=== PATIENT | male | born 1955 | race African-American/Black ===

== ENCOUNTER 2017-11-18 17:08 | Emergency (ER) | payer MEDICAID ==
[~2017-11-18] VITALS: Ht 185.4 cm; Wt 70.0 kg
[2017-11-18] MEDS ORDERED: DEXTROSE 50% WATER 50ML SYRINGE IV ONE (17:22)
[2017-11-18] MEDS ORDERED: OCTREOTIDE 1,000 MCG in SODIUM CHLORIDE 0.9% 100 ML IV ONE ×4 (18:00)
[2017-11-18 18:19] LABS: HEMATOCRIT. 36.3 % (42.0-52.0); HEMOGLOBIN. 12.2 g/dL (14.0-18.0); MEAN CORPUSCULAR VOLUME 92.3 fL (80.0-94.0); MEAN PLATELET VOLUME 9.1 fl (7.4-10.4); PLATELET 207 x1000/uL (130-400); RED BLOOD CELL COUNT 3.93 mill/uL (4.7-6.1); RED CELL DISTRIBUTION WIDTH 13.7 % (11.6-14.6)
[2017-11-18 18:29] LABS: CHLORIDE 109 mEq/L (98-107)
[2017-11-18 18:35] LABS: TROPONIN I < 0.02 ng/mL (0.00-0.04)
[2017-11-18 19:03] LABS: PLATELET ESTIMATE NORMAL
[2017-11-18] MEDS ORDERED: SODIUM CHLORIDE 0.9% 500 ML IV ONE (20:56)
[2017-11-18 21:16] LABS: CLARITY URINE CLEAR (CLEAR); COLOR URINE YELLOW (YELLOW); KETONES URINE TRACE (NEGATIVE); LEUKOCYTE ESTERASE URINE NEGATIVE (NEGATIVE); NITRITE URINE NEGATIVE (NEGATIVE); OCCULT BLOOD URINE TRACE (NEGATIVE); PROTEIN URINE NEGATIVE (NEGATIVE); SPECIFIC GRAVITY URINE 1.018 (1.005-1.030)
[2017-11-19 03:01] VITALS: BP 151/98
== END 2017-11-19 03:04 | disposition home or self-care (01) ==
LOC: ER 17:35
DX: E11.649 Type 2 diabetes mellitus with hypoglycemia without coma (principal); E78.00 Pure hypercholesterolemia, unspecified; I10 Essential (primary) hypertension
CPT/HCPCS: 36415; 71045; 80053; 81003; 82962; 83880; 84484; 85025; 85610; 93005; 96365; 96366; 99285; J2354; J7030; J7050; Z7610

== ENCOUNTER 2018-11-15 13:45 | Inpatient (IN) | payer MEDICAID, OTHER ==
[~2018-11-15] VITALS: Ht 180.3 cm; Wt 77.2 kg
[2018-11-15 05:16] VITALS: BP 118/70
[2018-11-15] MEDS ORDERED: SODIUM CHLORIDE 0.9% 1,000 ML IV ONE (14:16)
[2018-11-15 14:54] LABS: BASOPHILS % 0.3 % (0.0-2.0); HEMATOCRIT. 35.6 % (42.0-52.0); HEMOGLOBIN. 11.6 g/dL (14.0-18.0); LYMPHOCYTES % 9.7 % (20.0-50.0); MEAN CORPUSCULAR HEMOGLOBIN 31.3 pg (28.0-32.0); MEAN CORPUSCULAR VOLUME 96.3 fL (80.0-94.0); MEAN PLATELET VOLUME 10.5 fl (7.4-10.4); MONOCYTES % 9.3 % (2.0-8.0); NEUTROPHILS % 80.7 % (40.0-76.0); PLATELET 120 x1000/uL (130-400); RED BLOOD CELL COUNT 3.69 mill/uL (4.7-6.1); RED CELL DISTRIBUTION WIDTH 15.2 % (11.6-14.6)
[2018-11-15 15:01] LABS: CHLORIDE 111 mEq/L (98-107)
[2018-11-15 15:03] LABS: PARTIAL THROMBOPLASTIN TIME 30.6 sec (23.4-31.0); PROTHROMBIN TIME 10.5 sec (9.1-11.1)
[2018-11-15 15:05] LABS: ETHANOL BLOOD < 10 mg/dL
[2018-11-15] MEDS ORDERED: SODIUM BICARBONATE 8.4% 1 MEQ/ML 50ML SYR IV ONE (15:15)
[2018-11-15] MEDS ORDERED: SODIUM CHLORIDE 0.9% 1000ML BAG (SEPSIS BOLUS) IV ONE (15:15)
[2018-11-15] MEDS ORDERED: SODIUM POLYSTYRENE SULFONATE 15 G/60 ML BOT PO ONE (15:15)
[2018-11-15] MEDS ORDERED: ALBUTEROL (0.083%) 2.5MG/3ML NEB HHN ONE (15:15)
[2018-11-15] MEDS ORDERED: VANCOMYCIN 1 G PREMIX 200 ML IV ONE (15:30)
[2018-11-15] MEDS ORDERED: PIPERACILLIN/TAZ 3.375G PREMIX 50 ML IV ONE (15:30)
[2018-11-15] MEDS ORDERED: ALBUTEROL (0.5%) 2.5MG/0.5ML NEB HHN ONE (15:46)
[2018-11-15] MEDS ORDERED: ALBUTEROL (0.083%) 2.5MG/3ML NEB ONE (15:47)
[2018-11-15] MEDS ORDERED: ASPIRIN 325MG EC TABLET PO ONE (17:15)
[2018-11-15] MEDS ORDERED: NOREPINEPHRINE 4 MG in DEXT 5% WATER 246 ML IV ONE (18:00)
[2018-11-15] MEDS ORDERED: NOREPINEPHRINE 4MG/250ML PMX 250 ML IV NR (18:00)
[2018-11-15] MEDS ORDERED: ASPIRIN 300MG SUPP PR ONE (18:15)
[2018-11-15] MEDS ORDERED: LORAZEPAM 2MG/ML CPJ ONE (18:43)
[2018-11-15] MEDS ORDERED: ACYCLOVIR INJ 750 MG in DEXT 5% WATER 125 ML IV STA (19:05)
[2018-11-15] MEDS ORDERED: CEFTRIAXONE 2 G PREMIX 50 ML IV ONE (19:15)
[2018-11-15 19:49] LABS: GLUCOSE CSF 86 mg/dL (41-75)
[2018-11-15 21:41] LABS: CLARITY URINE CLEAR (CLEAR); COLOR URINE YELLOW (YELLOW); KETONES URINE NEGATIVE (NEGATIVE); LEUKOCYTE ESTERASE URINE NEGATIVE (NEGATIVE); NITRITE URINE NEGATIVE (NEGATIVE); OCCULT BLOOD URINE TRACE (NEGATIVE); PH URINE 6.5 (4.5-8.0); PROTEIN URINE NEGATIVE (NEGATIVE); SPECIFIC GRAVITY URINE 1.013 (1.005-1.030); UROBILINOGEN URINE 0.2 E.U./dL (0.2-1.0)
[2018-11-15 22:05] LABS: METHADONE URINE SCREEN NEGATIVE (NEGATIVE); OPIATES URINE SCREEN NEGATIVE (NEGATIVE)
[2018-11-15 22:06] LABS: *AMPHETAMINES SCREEN URINE NEGATIVE (NEGATIVE); *BARBITURATES SCREEN URINE NEGATIVE (NEGATIVE); *BENZODIAZEPINES SCREEN URINE NEGATIVE (NEGATIVE); *COCAINE SCREEN URINE NEGATIVE (NEGATIVE); CANNABINOID URINE SCREEN NEGATIVE (NEGATIVE); PHENCYCLIDINE URINE SCREEN NEGATIVE (NEGATIVE)
[2018-11-16] VITALS (66 sets, daily range): BP systolic 95–141; BP diastolic 39–96
[2018-11-16] MEDS ORDERED: NOREPINEPHRINE 4 MG in DEXT 5% WATER 246 ML IV PRN (09:00)
[2018-11-16 09:12] LABS: BASOPHILS % 0.2 % (0.0-2.0); EOSINOPHILS % 0.1 % (0.0-5.0); HEMATOCRIT. 27.2 % (42.0-52.0); LYMPHOCYTES % 11.7 % (20.0-50.0); MEAN CORPUSCULAR HEMOGLOBIN 31.5 pg (28.0-32.0); MEAN PLATELET VOLUME 10.3 fl (7.4-10.4); MONOCYTES % 14.6 % (2.0-8.0); NEUTROPHILS % 73.4 % (40.0-76.0); PLATELET 114 x1000/uL (130-400); RED BLOOD CELL COUNT 2.86 mill/uL (4.7-6.1); RED CELL DISTRIBUTION WIDTH 14.7 % (11.6-14.6)
[2018-11-16 09:21] LABS: PARTIAL THROMBOPLASTIN TIME 31.3 sec (23.4-31.0); PROTHROMBIN TIME 10.4 sec (9.1-11.1)
[2018-11-16] MEDS ORDERED: PIPERACILLIN/TAZ 2.25G PREMIX 50 ML IV SCH (09:30)
[2018-11-16] MEDS ORDERED: LORAZEPAM 2MG/ML CPJ IV PRN (09:30)
[2018-11-16] MEDS ORDERED: ACETAMINOPHEN 325MG TABLET PO PRN (09:30)
[2018-11-16] MEDS ORDERED: IPRATROPIUM/ALBUTEROL 0.5-3(2.5)MG/3ML NEB INH PRN (09:30)
[2018-11-16] MEDS ORDERED: DOCUSATE SODIUM 100MG CAPSULE PO PRN (09:30)
[2018-11-16] MEDS ORDERED: ONDANSETRON HCL 4MG/2ML INJ IV PRN (09:30)
[2018-11-16] MEDS: ENOXAPARIN 40MG/0.4ML SYR SUBCUT SCH (10:00)
[2018-11-16] MEDS ORDERED: SODIUM CHLORIDE 0.9% 1,000 ML IV SCH (10:00)
[2018-11-16 11:42] LABS: BG BASE EXCESS -4.4 mmol/L (-2.0-2.0); BG CARBOXYHEMOGLOBIN 0.3 % (0.5-1.5); BG DEOXYHEMOGLOBIN 4.6 % (0.0-5.0); BG HCO3 ACT 22.8 mmol/L (22.0-26.0); BG METHEMOGLOBIN 0.3 % (0.0-1.5); BG OXYGEN SATURATION 95.4 % (92.0-98.5); BG OXYHEMOGLOBIN 94.8 % (94.0-97.0); BG PCO2 51.8 mmHg (35.0-45.0); BG PH 7.261 (7.350-7.450); BG PO2 90.4 mmHg (75.0-100.0); BG SAMPLE SITE RIGHT RADIAL; BG VENT MODE ROOM AIR
[2018-11-16] MEDS: PIPERACILLIN/TAZ 3.375G PREMIX 50 ML IV SCH ×3 (13:04→22:59)
[2018-11-16] MEDS: VANCOMYCIN 1250MG in DEXTROSE 5% WATER 250ML IV SCH (13:05)
[2018-11-16] MEDS: DEXT 5%/0.45% NACL 1000ML 1,000 ML IV SCH ×2 (15:16→18:59)
[2018-11-16 19:26] LABS: CLARITY URINE CLEAR (CLEAR); COLOR URINE YELLOW (YELLOW); KETONES URINE NEGATIVE (NEGATIVE); LEUKOCYTE ESTERASE URINE TRACE (NEGATIVE); NITRITE URINE NEGATIVE (NEGATIVE); OCCULT BLOOD URINE 2+ (NEGATIVE); PROTEIN URINE TRACE (NEGATIVE); SPECIFIC GRAVITY URINE 1.022 (1.005-1.030); UROBILINOGEN URINE 0.2 E.U./dL (0.2-1.0)
[2018-11-16 20:01] LABS: FOLIC ACID (FOLATE) SERUM 11.6 ng/mL (>5.38)
[2018-11-16 20:09] LABS: T4 FREE 1.18 ng/dL (0.76-1.46)
[2018-11-17] VITALS (35 sets, daily range): BP systolic 122–157; BP diastolic 71–117
[2018-11-17] MEDS: PIPERACILLIN/TAZ 3.375G PREMIX 50 ML IV SCH ×4 (04:59→22:34)
[2018-11-17] MEDS: VANCOMYCIN 1250MG in DEXTROSE 5% WATER 250ML IV SCH (05:23)
[2018-11-17 05:38] LABS: BASOPHILS % 0.6 % (0.0-2.0); EOSINOPHILS % 0.4 % (0.0-5.0); HEMATOCRIT. 30.5 % (42.0-52.0); HEMOGLOBIN. 10.3 g/dL (14.0-18.0); LYMPHOCYTES % 18.1 % (20.0-50.0); MEAN CORPUSCULAR HEMOGLOBIN 31.8 pg (28.0-32.0); MEAN CORPUSCULAR VOLUME 94.4 fL (80.0-94.0); MEAN PLATELET VOLUME 10.5 fl (7.4-10.4); MONOCYTES % 10.2 % (2.0-8.0); NEUTROPHILS % 70.7 % (40.0-76.0); PLATELET 112 x1000/uL (130-400); RED BLOOD CELL COUNT 3.23 mill/uL (4.7-6.1); RED CELL DISTRIBUTION WIDTH 14.5 % (11.6-14.6)
[2018-11-17 05:49] LABS: PHOSPHORUS 3.5 mg/dL (2.5-4.9)
[2018-11-17] MEDS: ENOXAPARIN 40MG/0.4ML SYR SUBCUT SCH (09:58)
[2018-11-17] MEDS: DEXT 5%/0.45% NACL 1000ML 1,000 ML IV SCH ×2 (11:39→21:20)
[2018-11-17] MEDS: VANCOMYCIN 750 MG PREMIX 150 ML IV SCH (18:00)
[2018-11-18] VITALS (28 sets, daily range): BP systolic 120–147; BP diastolic 66–98
[2018-11-18] MEDS: PIPERACILLIN/TAZ 3.375G PREMIX 50 ML IV SCH ×4 (04:39→23:19)
[2018-11-18] MEDS: VANCOMYCIN 750 MG PREMIX 150 ML IV SCH ×2 (04:39→17:43)
[2018-11-18 05:33] LABS: BASOPHILS % 0.6 % (0.0-2.0); EOSINOPHILS % 1.5 % (0.0-5.0); HEMATOCRIT. 30.3 % (42.0-52.0); HEMOGLOBIN. 10.2 g/dL (14.0-18.0); LYMPHOCYTES % 27.2 % (20.0-50.0); MEAN CORPUSCULAR HEMOGLOBIN 31.9 pg (28.0-32.0); MEAN CORPUSCULAR VOLUME 94.7 fL (80.0-94.0); MEAN PLATELET VOLUME 10.7 fl (7.4-10.4); MONOCYTES % 12.7 % (2.0-8.0); PLATELET 90 x1000/uL (130-400); RED CELL DISTRIBUTION WIDTH 14.9 % (11.6-14.6)
[2018-11-18 05:51] LABS: CHLORIDE 111 mEq/L (98-107)
[2018-11-18 05:58] LABS: PHOSPHORUS 3.1 mg/dL (2.5-4.9)
[2018-11-18 05:59] LABS: LDL CHOLESTEROL 40 mg/dL (5-100)
[2018-11-18 06:00] LABS: CREATINE KINASE 469 IU/L (39-308); HDL CHOLESTEROL 86 mg/dL (40-59)
[2018-11-18 07:19] LABS: BG BASE EXCESS 0.2 mmol/L (-2.0-2.0); BG CARBOXYHEMOGLOBIN 0.3 % (0.5-1.5); BG DEOXYHEMOGLOBIN 3.4 % (0.0-5.0); BG HCO3 ACT 24.8 mmol/L (22.0-26.0); BG METHEMOGLOBIN 0.1 % (0.0-1.5); BG OXYGEN SATURATION 96.6 % (92.0-98.5); BG OXYHEMOGLOBIN 96.2 % (94.0-97.0); BG PCO2 39.6 mmHg (35.0-45.0); BG PH 7.414 (7.350-7.450); BG PO2 95.6 mmHg (75.0-100.0); BG SAMPLE SITE LEFT RADIAL; BG TOTAL HEMOGLOBIN 10.2 g/dL (12.0-18.0); BG VENT MODE ROOM AIR
[2018-11-18 09:06] LABS: HIV SCREEN 4G Non Reactive (Non Reactive)
[2018-11-18] MEDS: ENOXAPARIN 40MG/0.4ML SYR SUBCUT SCH (09:29)
[2018-11-18] MEDS: DEXT 5%/0.45% NACL 1000ML 1,000 ML IV SCH (09:30)
[2018-11-18] MEDS ORDERED: MAGNESIUM 2 G PREMIX 50 ML IV SCH (10:30)
[2018-11-18] MEDS: DIVALPROEX SODIUM 250MG DR TABLET PO SCH (16:33)
[2018-11-19] VITALS (30 sets, daily range): BP systolic 129–172; BP diastolic 77–99
[2018-11-19] MEDS: DEXT 5%/0.45% NACL 1000ML 1,000 ML IV SCH ×2 (03:07→17:54)
[2018-11-19 05:33] LABS: HEMATOCRIT. 31.9 % (42.0-52.0); HEMOGLOBIN. 10.7 g/dL (14.0-18.0); MEAN CORPUSCULAR HEMOGLOBIN 31.7 pg (28.0-32.0); MEAN CORPUSCULAR VOLUME 94.9 fL (80.0-94.0); MEAN PLATELET VOLUME 10.6 fl (7.4-10.4); PLATELET 81 x1000/uL (130-400); RED BLOOD CELL COUNT 3.36 mill/uL (4.7-6.1); RED CELL DISTRIBUTION WIDTH 14.4 % (11.6-14.6)
[2018-11-19] MEDS: PIPERACILLIN/TAZ 3.375G PREMIX 50 ML IV SCH ×4 (06:05→22:37)
[2018-11-19 06:24] LABS: VANCOMYCIN TROUGH 27.7 ug/mL (5.0-10.0)
[2018-11-19] MEDS: ENOXAPARIN 40MG/0.4ML SYR SUBCUT SCH (08:15)
[2018-11-19] MEDS: DIVALPROEX SODIUM 250MG DR TABLET PO SCH ×3 (09:22→17:53)
[2018-11-19 09:44] LABS: NUCLEATED RED BLOOD CELLS 3 /100 WBC; PLATELET ESTIMATE DECREASED
[2018-11-20] VITALS: BP 109/76
[2018-11-20 04:00] VITALS: BP 141/82
[2018-11-20] MEDS: PIPERACILLIN/TAZ 3.375G PREMIX 50 ML IV SCH ×4 (04:33→23:12)
[2018-11-20 07:38] LABS: BASOPHILS % 0.5 % (0.0-2.0); EOSINOPHILS % 1.9 % (0.0-5.0); HEMATOCRIT. 29.4 % (42.0-52.0); LYMPHOCYTES % 20.3 % (20.0-50.0); MEAN CORPUSCULAR HEMOGLOBIN 31.8 pg (28.0-32.0); MEAN CORPUSCULAR VOLUME 93.8 fL (80.0-94.0); MONOCYTES % 13.5 % (2.0-8.0); NEUTROPHILS % 63.8 % (40.0-76.0); PLATELET 84 x1000/uL (130-400); RED BLOOD CELL COUNT 3.14 mill/uL (4.7-6.1); RED CELL DISTRIBUTION WIDTH 14.3 % (11.6-14.6)
[2018-11-20 07:57] LABS: PHOSPHORUS 3.3 mg/dL (2.5-4.9)
[2018-11-20] MEDS: DEXT 5%/0.45% NACL 1000ML 1,000 ML IV SCH (10:39)
[2018-11-20] MEDS: DIVALPROEX SODIUM 250MG DR TABLET PO SCH ×2 (10:39→16:14)
[2018-11-20 12:32] VITALS: BP 129/82
[2018-11-20 16:00] VITALS: BP 119/70
[2018-11-20 20:49] VITALS: BP 140/83
[2018-11-21] VITALS (7 sets, daily range): BP systolic 133–143; BP diastolic 78–83
[2018-11-21] MEDS: DIVALPROEX SODIUM 250MG DR TABLET PO SCH ×4 (01:58→17:04)
[2018-11-21 04:18] LABS: *HSV 1 DNA PCR Negative (Negative); *HSV 2 DNA PCR Negative (Negative)
[2018-11-21] MEDS: DEXT 5%/0.45% NACL 1000ML 1,000 ML IV SCH (05:02)
[2018-11-21] MEDS: PIPERACILLIN/TAZ 3.375G PREMIX 50 ML IV SCH (05:03)
[2018-11-21 08:05] LABS: BASOPHILS % 0.4 % (0.0-2.0); EOSINOPHILS % 2.8 % (0.0-5.0); HEMATOCRIT. 29.1 % (42.0-52.0); HEMOGLOBIN. 9.7 g/dL (14.0-18.0); LYMPHOCYTES % 25.8 % (20.0-50.0); MEAN CORPUSCULAR HEMOGLOBIN 31.4 pg (28.0-32.0); MEAN CORPUSCULAR VOLUME 94.3 fL (80.0-94.0); MEAN PLATELET VOLUME 10.6 fl (7.4-10.4); MONOCYTES % 13.9 % (2.0-8.0); NEUTROPHILS % 57.1 % (40.0-76.0); PLATELET 98 x1000/uL (130-400); RED BLOOD CELL COUNT 3.09 mill/uL (4.7-6.1); RED CELL DISTRIBUTION WIDTH 14.2 % (11.6-14.6)
[2018-11-21 08:14] LABS: PHOSPHORUS 3.6 mg/dL (2.5-4.9)
== END 2018-11-21 20:50 | DRG 720 ==
LOC: ER 13:45 → EDBEDREQSVC 17:59 → MICUNO 20:05 → EDBEDREQTM 20:10 → EDBEDREQ 20:10 → ENRESERV 11-16 04:21 → 5WST 11-19 22:05
PROVIDERS: ADMIT Internal Medicine; ATTEND Internal Medicine
PROC: 06HY33Z Insertion of Infusion Device into Lower Vein, Percutaneous Approach (ICD-10-PCS; 2018-11-15)
PROC: B54BZZA Ultrasonography of Right Lower Extremity Veins, Guidance (ICD-10-PCS; 2018-11-15)
PROC: 009U3ZX Drainage of Spinal Canal, Percutaneous Approach, Diagnostic (ICD-10-PCS; 2018-11-15)
PROC: 4A00X4Z Measurement of Central Nervous Electrical Activity, External Approach (ICD-10-PCS; principal; 2018-11-17)
DX: A41.9 Sepsis, unspecified organism (principal); I21.4 Non-ST elevation (NSTEMI) myocardial infarction; J96.92 Respiratory failure, unspecified with hypercapnia; R65.21 Severe sepsis with septic shock; G92 Toxic encephalopathy; T68.XXXA Hypothermia, initial encounter; I95.9 Hypotension, unspecified; D69.6 Thrombocytopenia, unspecified; E11.22 Type 2 diabetes mellitus with diabetic chronic kidney disease; G03.9 Meningitis, unspecified; N17.9 Acute kidney failure, unspecified; N18.3 Chronic kidney disease, stage 3 (moderate); E87.5 Hyperkalemia; S00.81XA Abrasion of other part of head, initial encounter; E87.1 Hypo-osmolality and hyponatremia; E83.42 Hypomagnesemia; I62.00 Nontraumatic subdural hemorrhage, unspecified; R26.9 Unspecified abnormalities of gait and mobility; D64.9 Anemia, unspecified; E87.2 Acidosis; E78.00 Pure hypercholesterolemia, unspecified; E78.5 Hyperlipidemia, unspecified; I12.9 Hypertensive chronic kidney disease with stage 1 through stage 4 chronic kidney disease, or unspecified chronic kidney disease; M62.82 Rhabdomyolysis; N39.0 Urinary tract infection, site not specified; R62.7 Adult failure to thrive; Z82.49 Family history of ischemic heart disease and other diseases of the circulatory system; Z83.3 Family history of diabetes mellitus
CPT/HCPCS: 36415; 36600; 70544; 70553; 71045; 76770; 80048; 80061; 80165; 80202; 80305; 82140; 82270; 82375; 82550; 82607; 82746; 82805; 82945; 82962; 83036; 83605; 83735; 83880; 84100; 84145; 84157; 84439; 84443; 84481; 84484; 87070; 87389; 87529; 92523; 92610; 93005; 93306; 93970; 94640; 96365; 96366; 96368; 96375; 97116; 97162; 97166; 99291; A6261; J0133; J0696; J1650; J2060; J2543; J3370; J3475; J3490; J7030; J7040; J7050; J7060; J7611; A4315